=== PATIENT | female | born 2000 | race Two or more races ===

== ENCOUNTER 2022-04-07 15:08 | Emergency (ER) | payer OTHER ==
[~2022-04-07] VITALS: Ht 170.2 cm; Wt 49.4 kg
[2022-04-07] MEDS ORDERED: OMECLAMOX-PAK1 EACH PO (16:45)
== END 2022-04-07 19:27 | disposition home or self-care (01) ==
LOC: EMR PED 15:08
DX: A04.8 Other specified bacterial intestinal infections (principal); R10.13 Epigastric pain